=== PATIENT | female | born 1965 | race Caucasian/White ===

== ENCOUNTER → 2017-07-19 | Outpatient (CLI) | payer BC ==
[~2017-07-19] MED LIST: IBUP-1223 PO; MELA1TAB8 PO; PRAM1TAB5 PO
[2017-07-19 11:44] LABS: HEMATOCRIT 35.9 % (34.6-47.8); HEMOGLOBIN 11.6 g/dL (11.7-16.4); WHITE BLOOD COUNT 7.7 x10^3/uL (3.4-10)
[2017-07-19 11:53] LABS: BLOOD UREA NITROGEN 13 mg/dL (7-18)
[2017-07-19 14:19] LABS: HIV 1&2 ANTIBODY SCREEN Nonreactive (Nonreactive); HIV-1 p24 ANTIGEN Nonreactive (Nonreactive)
== END | disposition home or self-care (01) ==
LOC: STAR 10:27
PROVIDERS: ATTEND Orthopaedic Surgery
DX: Z01.818 Encounter for other preprocedural examination (principal); M17.12 Unilateral primary osteoarthritis, left knee; R79.1 Abnormal coagulation profile
CPT/HCPCS: 36415; 80048; 83036; 85025; 85610; 85730; 86703; 87081; 87899; G0435

== ENCOUNTER 2017-08-01 09:16 | Inpatient (IN) | payer BC ==
[~2017-08-01] VITALS: Ht 160 cm; Wt 97.4 kg
[~2017-08-01 09:16] MED LIST changes: +EPINEPHRINE 1 MG/ML, 1ML ONE; +KETOROLAC 60 MG/2 ML ONE; +ROPIvacaine/PF 0.2%, 20 ML ONE; +SODIUM CHLORIDE 0.9% 100 ML ONE; +TRANEXAMIC ACID 100 MG/ML, 10ML ONE
[2017-08-01] MEDS ORDERED: VANCOMYCIN PER PHARMACY MC ONE (09:40)
[2017-08-01] MEDS ORDERED: LACTATED RINGERS 1,000 ML IV SCH (09:43)
[2017-08-01] MEDS ORDERED: GABAPENTIN 300 MG CAPSULE ONE (09:47)
[2017-08-01] MEDS ORDERED: ACETAMINOPHEN 500 MG TABLET ONE (09:47)
[2017-08-01] MEDS ORDERED: OxyconTIN ER 10 MG TAB.ER ONE (09:47)
[2017-08-01] MEDS ORDERED: TRANEXAMIC ACID 100 MG/ML, 10ML ONE ×2 (09:47)
[2017-08-01] MEDS ORDERED: ACETAMINOPHEN 500 MG TABLET PO ONE (10:00)
[2017-08-01] MEDS ORDERED: VANCOMYCIN 1,800 MG in SODIUM CHLORIDE 0.9% 250 ML IV ONE (10:00)
[2017-08-01] MEDS ORDERED: OxyconTIN ER 10 MG TAB.ER PO ONE (10:00)
[2017-08-01] MEDS ORDERED: GABAPENTIN 300 MG CAPSULE PO ONE (10:00)
[2017-08-01 10:28] VITALS: BP 125/80
[2017-08-01] MEDS ORDERED: MIDAZOLAM 1 MG/ML, 2ML ONE (10:31)
[2017-08-01] MEDS ORDERED: FENTANYL PF 100 MCG/2ML ONE ×2 (10:31→11:52)
[2017-08-01] MEDS ORDERED: TRAM50TA2 PO (10:32)
[2017-08-01] MEDS ORDERED: TRANEXAMIC ACID 1,000 MG in SODIUM CHLORIDE 0.9% 100 ML IVPB ONE (11:30)
[2017-08-01] MEDS ORDERED: ONDANSETRON 2MG/ML, 2ML IV PRN (11:30)
[2017-08-01] MEDS ORDERED: ACETAMINOPHEN 650 MG/20.3 ML UDC PO PRN (11:30)
[2017-08-01] MEDS ORDERED: ALUMINUM/MAG/SIMETHICONE 30 ML UDC PO PRN (11:30)
[2017-08-01] MEDS ORDERED: ONDANSETRON 4 MG TABLET PO PRN (11:30)
[2017-08-01] MEDS ORDERED: MAGNESIUM HYDROXIDE 8%, 30ML UDC PO PRN (11:30)
[2017-08-01] MEDS ORDERED: HYDROmorphone 1 MG/ML, 1ML IV PRN ×2 (11:30→12:30)
[2017-08-01] MEDS ORDERED: SENNA/DOCUSATE TABLET PO PRN (11:30)
[2017-08-01] MEDS ORDERED: DIPHENHYDRAMINE 50 MG CAPSULE PO PRN (11:30)
[2017-08-01] MEDS ORDERED: HYDROmorphone 1 MG/ML, 1ML ONE (12:23)
[2017-08-01] MEDS ORDERED: PROPOFOL 10 MG/ML, 20ML ONE (12:28)
[2017-08-01] MEDS ORDERED: ONDANSETRON 2MG/ML, 2ML ONE (12:28)
[2017-08-01] MEDS ORDERED: CEFAZOLIN 1,000 MG ONE (12:28)
[2017-08-01] MEDS ORDERED: DEXAMETHASONE 4 MG/ML, 1ML ONE (12:28)
[2017-08-01] MEDS ORDERED: hydrALAzine 20 MG/ML, 1ML IV PRN (12:30)
[2017-08-01] MEDS ORDERED: MEPERIDINE/PF 25MG/0.5ML IVPush PRN (12:30)
[2017-08-01] MEDS ORDERED: PROMETHAZINE 25 MG/ML, 1ML IV PRN (12:30)
[2017-08-01] MEDS ORDERED: OXYcodone 5 MG/5 ML ORAL.SOL UDC PO PRN (12:30)
[2017-08-01] MEDS ORDERED: ALBUTEROL SULFATE 2.5 MG/3 ML NPPB PRN (12:30)
[2017-08-01] MEDS ORDERED: FENTANYL PF 100 MCG/2ML IV PRN (12:30)
[2017-08-01] MEDS ORDERED: METOPROLOL 1 MG/ML, 5ML IV PRN (12:30)
[2017-08-01] MEDS ORDERED: ONDANSETRON 2MG/ML, 2ML IVPush PRN (12:30)
[2017-08-01] MEDS ORDERED: LABETALOL 5MG/ML, 20ML IV PRN (12:30)
[2017-08-01] MEDS ORDERED: EPHEDRINE 50 MG/ML, 1ML IVPush PRN (12:30)
[2017-08-01] MEDS ORDERED: MIDAZOLAM 1 MG/ML, 2ML IV PRN (12:30)
[2017-08-01] MEDS ORDERED: DIAZEPAM 5 MG/ML, 2ML IVPush PRN (12:30)
[2017-08-01] MEDS ORDERED: HYDROcodone/APAP 7.5-325MG/15ML UDC PO PRN (12:30)
[2017-08-01] MEDS ORDERED: MEPERIDINE/PF 25MG/0.5ML ONE (13:13)
[2017-08-01] MEDS: D5%-0.45NACL+KCL 20MEQ 1,000 ML IV SCH (14:30)
[2017-08-01] MEDS ORDERED: DIAZEPAM 5 MG TABLET PO PRN (14:30)
[2017-08-01] MEDS: OXYcodone IR 5MG TABLET PO PRN ×2 (16:20→20:28)
[2017-08-01] MEDS: ASPIRIN 81 MG TABLET EC PO SCH (17:59)
[2017-08-01] MEDS: CEFAZOLIN PMX 1GM/50ML 50 ML IVPB SCH (19:35)
[2017-08-01 20:19] VITALS: BP 115/62
[2017-08-01] MEDS: DOCUSATE 100 MG CAPSULE PO SCH (20:28)
[2017-08-01] MEDS ORDERED: VANCOMYCIN PMX 1GM/200ML 200 ML IVPB SCH (23:30)
[2017-08-01 23:53] VITALS: BP 127/75
[2017-08-02] MEDS: D5%-0.45NACL+KCL 20MEQ 1,000 ML IV SCH ×2 (00:30→08:09)
[2017-08-02] MEDS: OXYcodone IR 5MG TABLET PO PRN ×3 (00:59→09:21)
[2017-08-02 03:48] VITALS: BP 114/78
[2017-08-02] MEDS: CEFAZOLIN PMX 1GM/50ML 50 ML IVPB SCH (03:51)
[2017-08-02] MEDS: ASPIRIN 81 MG TABLET EC PO SCH (05:33)
[2017-08-02 05:54] LABS: HEMATOCRIT 29.7 % (34.6-47.8); HEMOGLOBIN 9.6 g/dL (11.7-16.4)
[2017-08-02] MEDS ORDERED: DEXAMETHASONE 4 MG/ML, 1ML IVPush SCH (06:00)
[2017-08-02 07:36] VITALS: BP 98/54
[2017-08-02] MEDS: DOCUSATE 100 MG CAPSULE PO SCH (08:09)
[2017-08-02] MEDS ORDERED: OXYC5CAP2 PO (08:57)
[2017-08-02] MEDS ORDERED: ASPI-496 PO (08:58)
[2017-08-02] MEDS ORDERED: ONDA4TAB7 PO (08:59)
[2017-08-02] MEDS ORDERED: DOCU-131 PO (08:59)
[2017-08-02] MEDS ORDERED: TAMSULOSIN 0.4 MG CAP.ER.24H PO SCH (09:00)
[2017-08-02] MEDS ORDERED: TRAM50TA2 PO (09:05)
[2017-08-02] MEDS ORDERED: CELE200C PO (09:06)
[2017-08-02] MEDS ORDERED: DIAZ5TAB PO (09:06)
[2017-08-02 11:12] VITALS: BP 135/78
[2017-08-02] MEDS ORDERED: KETOROLAC 30 MG/1 ML IV SCH (11:30)
== END 2017-08-02 11:57 | disposition home or self-care (01) | DRG 470 ==
LOC: ORIP 09:16 → 4NOR 14:17 → DCLOUNGE 08-02 11:38
PROVIDERS: ADMIT Orthopaedic Surgery; ATTEND Orthopaedic Surgery
PROC: 0SRD0J9 Replacement of Left Knee Joint with Synthetic Substitute, Cemented, Open Approach (ICD-10-PCS; principal; 2017-08-02)
DX: M17.12 Unilateral primary osteoarthritis, left knee (principal)
CPT/HCPCS: 36415; 85014; 85018; C1713; J0171; J0690; J1100; J1170; J1885; J2175; J2250; J2405; J2704; J2795; J3010; J3370; C1776; J7050; J7120